=== PATIENT | male | born 1970 | race Caucasian/White ===

== ENCOUNTER 2018-03-19 20:16 | Emergency (ER) | payer SELFPAY ==
[2018-03-19] MEDS ORDERED: HYDROCODONE/ACETAMINOPHEN 5-325 MG TABLET PO ONE (22:10)
[2018-03-19] MEDS ORDERED: ONDANSETRON 4 MG TAB.RAPDIS PO ONE (22:10)
--- NOTE | 2018-03-19 23:09 | RADIOLOGY REPORT (SQ) ---
EXAM DESCRIPTION: XR SHOULDER 2 OR MORE VIEWS COMPLETED DATE/TME: 03/19/2018 22:10 CLINICAL HISTORY: 47 years Male, trauma COMPARISON: None. Findings: Mild osteoarthritis. Bones, joints, and soft tissues of the RIGHT XR SHOULDER 3VIEWS appear otherwise intact. IMPRESSION: No acute findings.
[2018-03-19 23:11] VITALS: BP 119/74
--- NOTE | 2018-03-19 23:13 | RADIOLOGY REPORT (SQ) ---
EXAM DESCRIPTION: CT CERVICAL SPINE WITHOUT IV CONTRAST COMPLETED DATE/TME: 03/19/2018 22:10 CLINICAL HISTORY: 47 years Male, trauma Comparison: None. Technique: No contrast. Coronal and sagittal reformat. This exam was performed according to our departmental dose-optimization program, which includes automated exposure control, adjustment of the mA and/or kV according to patient size and/or use of iterative reconstruction technique.[facility]: Dose Right [facility]: CareDose [facility]: Dose Right [facility]: Teradose 4D [facility]: [employer]abbits LIMITATIONS: None Findings: 0.5 cm subsolid left upper lobar pulmonary nodule; no routine follow-up recommended. Normal alignment. Normal curvature. No fracture. Normal vertebral heights. Partially imaged nuchal soft tissues, inferior cranium, and upper thorax appear otherwise grossly intact. IMPRESSION: No acute findings.
--- NOTE | 2018-03-19 23:17 | RADIOLOGY REPORT (SQ) ---
EXAM DESCRIPTION: CT THORACIC SPINE WITHOUT IV CONTRAST COMPLETED DATE/TME: 03/19/2018 22:10 CLINICAL HISTORY: 47 years Male, trauma Comparison: None. Technique: No contrast. Coronal and sagittal reformat. This exam was performed according to our departmental dose-optimization program, which includes automated exposure control, adjustment of the mA and/or kV according to patient size and/or use of iterative reconstruction technique.[facility]: Dose Right [facility]: CareDose [facility]: Dose Right [facility]: Teradose 4D [facility]: [employer] LIMITATIONS: None Findings: 0.5 cm left upper lobar subsolid pulmonary nodule; no routine follow up recommended. Normal alignment. Normal curvature. No fracture. Normal vertebral heights. Mild disc desiccation. Small T10-T11 disc bulge causes mild spinal canal stenosis. Posterior thorax appears otherwise grossly intact. IMPRESSION: No acute findings.
--- NOTE | 2018-03-19 23:17 | RADIOLOGY REPORT (SQ) ---
CT HEAD WITHOUT IV CONTRAST HISTORY: Trauma. COMPARISON: None. TECHNIQUE: CT scan of the brain. This exam was performed according to our departmental dose-optimization program, which includes automated exposure control, adjustment of the mA and/or kV according to patient size and/or use of iterative reconstruction technique. FINDINGS: The ventricles, cisterns, and sulci are age-appropriate. The ortiz-white matter differentiation is preserved without evidence of acute infarction. No acute intracranial hemorrhage or extra-axial fluid collection is seen. No midline shift, mass effect, or hydrocephalus. Paranasal sinuses and mastoid air cells are clear. Calvarium is intact. IMPRESSION: No acute intracranial abnormality.
--- NOTE | 2018-03-19 23:28 | ER Document Report ---
ED General - General Chief Complaint: Head Injury Stated Complaint: BACK PAIN Time Seen by Provider: 03/19/18 21:57 Notes: Patient is a 47-year-old male who 4 days ago fell while trying to cut a tree. He fell mainly onto his right side but also hit the back of his head and neck. He has pain to his head and neck. Previous history of concussion. He says he feels as if he had a concussion because he has had severe headache as well as vomiting since hitting his head. He tried to wait to see if his symptoms improve but they have not and therefore he is come to the ER. No other complaints at this time. He does take aspirin. No other blood thinners. No focal weakness or numbness in his extremities. He is able to ambulate without difficulty. He does have some pain into the right shoulder. He says he does have a history of chronic problems with the right shoulder but is much worse after the fall. TRAVEL OUTSIDE OF THE [place] IN LAST 30 DAYS: No - Related Data Allergies/Adverse Reactions: sumatriptan [From Imitrex] Allergy (Verified 03/19/18 21:55) methocarbamol [From Robaxin] Adverse Reaction (Verified 03/19/18 21:55) Past Medical History - Social History Smoking Status: Never Smoker Chew tobacco use (# tins/day): No Frequency of alcohol use: None Drug Abuse: None Family History: Reviewed & Not Pertinent Patient has suicidal ideation: No Patient has homicidal ideation: No - Past Medical History Cardiac Medical History: Reports: Hx Hypertension Renal/ Medical History: Denies: Hx Peritoneal Dialysis Review of Systems - Review of Systems Notes: My Normal Review Basic REVIEW OF SYSTEMS: CONSTITUTIONAL : Denies fever, chills, or sweats. Denies recent illness. EENT: Denies eye, ear, throat, or mouth pain or symptoms. Denies nasal or sinus congestion. CARDIOVASCULAR: Denies chest pain. RESPIRATORY: Denies cough, cold, or chest congestion. Denies shortness of breath, difficulty breathing, or wheezing. GASTROINTESTINAL: Denies abdominal pain. Did have vomiting. MUSCULOSKELETAL: Pain in neck, upper back, and right shoulder. SKIN: Denies rash or skin lesions. NEUROLOGICAL: Denies altered mental status or loss of consciousness. Has a headache. Denies weakness or paralysis or loss of use of either side. Denies problems with gait or speech. Denies sensory or motor loss. ALL OTHER SYSTEMS REVIEWED AND NEGATIVE. Physical Exam - Vital signs Vitals: Temp Pulse Resp BP Pulse Ox 98.8 F 86 16 112/68 98 03/19/18 21:04 03/19/18 21:04 03/19/18 21:04 03/19/18 21:04 03/19/18 21:04 - Notes Notes: General Appearance: Well nourished, alert, cooperative, no acute distress, moderate obvious discomfort. Vitals: reviewed, See vital signs table. Head: Some pain to palpation of the occipital region. Eyes: PERRL, EOMI, Conjuctiva clear Mouth: No decreasd moisture Throat: No tonsillar inflammation, No airway obstruction, No lymphadenopathy Neck: Supple, pain to palpation over the cervical paraspinal musculature. Back: Pain palpation over the upper thoracic spine with midline. No step-offs or deformities. Remainder of lumbar and thoracic spine is nontender. Lungs: No wheezing, No rales, No rhonci, No accessory muscle use, good air exchange bilaterally. Heart: Normal rate, Regular rythm, No murmur, no rub Abdomen: Normal BS, soft, No rigidity, No abdominal tenderness, No guarding, no rebound, no abdominal masses, no organomegaly Extremities: strength 5/5 in all extremities, good pulses in all extremities, no swelling or tenderness in the extremities exception of some pain with range of motion of the right shoulder. Pain to palpation over mainly the anterior aspect of the right shoulder. Neuro: speech clear, oriented x 3, normal affect, responds appropriately to questions. Renal nerves II through XII are intact. Distal sensation intact. Patient moves all extremities without difficulty. Course - Re-evaluation Re-evalutation: 03/20/18 06:20 CT scans and x-rays are negative. No evidence of intracranial hemorrhage. No evidence of fracture. I suspect the patient most likely has a concussion. I informed him that he should not do any heavy lifting or any type of work that could cause potential recurrent fall or injury. Told him that he must stay away from the steps and jobs for 1-2 weeks. I encouraged him follow-up with his primary care doctor for reevaluation in regards to his concussion or I have also referred him to a neurologist we can follow-up with. Also referred to orthopedist for reevaluation of his shoulder if his shoulder continues to hurt him or bother him after 1 week. Patient to return to ER if he has intractable headache, vomiting, or feels unwell. Patient agrees with plan will be discharged home. Dictation of this chart was performed using voice recognition software; therefore, there may be some unintended grammatical errors. - Vital Signs Vital signs: Temp Pulse Resp BP Pulse Ox 98.2 F 87 18 119/74 99 03/19/18 23:09 03/19/18 23:09 03/19/18 23:09 03/19/18 23:09 03/19/18 23:09 Discharge - Discharge Clinical Impression: Concussion Qualifiers: Encounter type: initial encounter Loss of consciousness presence/duration: without LOC Qualified Code(s): S06.0X0A - Concussion without loss of consciousness, initial encounter Cervical strain, acute Qualifiers: Encounter type: initial encounter Qualified Code(s): S16.1XXA - Strain of muscle, fascia and tendon at neck level, initial encounter Thoracic myofascial strain Qualifiers: Encounter type: initial encounter Qualified Code(s): S29.019A - Strain of muscle and tendon of unspecified wall of thorax, initial encounter Shoulder pain, acute Qualifiers: Laterality: right Qualified Code(s): M25.511 - Pain in right shoulder Condition: Good Disposition: HOME, SELF-CARE Additional Instructions: Concussion You have suffered a concussion -- a temporary loss of certain brain functions due to a mild brain injury. The recovery is usually rapid and complete. The temporary problems occurring with a concussion can include loss of consciousness, dizziness, nausea, vomiting, and confusion. Repeat concussions can cause brain damage. In the future, avoid activities that will cause a blow to your head. Wear a helmet for sports such as snowboarding, biking, or skating. It's important that someone be with you for the first 24 hours. During this time, do not exercise or drive a vehicle. Do not take any pain medication stronger than acetaminophen unless prescribed by the physician. Any significant changes should be reported immediately to the physician. Signs of a problem may include: (1) Mental confusion (2) Incoordination or staggering (3) Repeated or forceful vomiting (4) Clear or bloody drainage from ear, mouth, or nose (5) Severe headache, not relieved by acetaminophen or prescribed pain medication (6) Failure to improve in 24 hours Please follow up with the orthopedist, Dr. Núñez, in one week if you are still having pain in your shoulder. No tree cutting or climbing on ladders for at least 1 week. Please follow up with your primary care doctor or the neurologist, Dr. Crisostomo, in one week for reevaluation of yoru concussion. Please be aware that [facility] does have Tylenol (acetaminophen) in it. Please make sure you do not take more than 4000 mg of acetaminophen a day. Do not drive or care for children after you have taken this medication they will make you sleepy and sometimes impair judgment. Referrals: PAN SUTHERLAND MD [ACTIVE STAFF] - Follow up in 1 week DANY NÚÑEZ DO [ACTIVE STAFF] - Follow up in 1 week
[2018-03-19] MEDS ORDERED: ONDANSETRON ODT 4 MG TAB (6 TAB/ER DISP) PO PRN (23:29)
[2018-03-19] MEDS ORDERED: HYDROCODONE/ACETAMINOPHEN 5-325 MG (6 TAB/ER DISP) PO PRN (23:29)
== END 2018-03-19 23:49 | disposition home or self-care (01) ==
LOC: ER 20:16
DX: S06.0X0A Concussion without loss of consciousness, initial encounter (principal); S16.1XXA Strain of muscle, fascia and tendon at neck level, initial encounter; S29.019A Strain of muscle and tendon of unspecified wall of thorax, initial encounter; M25.511 Pain in right shoulder; W19.XXXA Unspecified fall, initial encounter; Y93.H2 Activity, gardening and landscaping; Y92.007 Garden or yard of unspecified non-institutional (private) residence as the place of occurrence of the external cause; I10 Essential (primary) hypertension
CPT/HCPCS: 99284; 73030; 70450; 72125; 72128; S0119